=== PATIENT | male | born 1960 | race Caucasian/White ===

== ENCOUNTER 2018-10-04 12:01 | Emergency (ER) | payer MEDICAID, SELFPAY ==
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
--- NOTE | 2018-10-04 12:26 | ED.RN ---
1CM BY 1CM CIRCULAR WOUND ON RT OUTER FOREARM. 10CM BY 4CM LACERATION ON INNER FOREARM. 2.5CM BY 2CM CIRCULAR WOUND TO RT CHEST BELOW RT BREAST.
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
--- NOTE | 2018-10-04 14:11 | ED.RN ---
CONTROL TECHNICIAN Robbie BROWN RN ASSISTING WITH CODE.
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
--- OUTSIDE RECORDS SUMMARY | 2019-01-06 13:23 | XMS RPT_ITS ---
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 Source: [facility] 10:44 [facility] REPOSITORY TYPE CODE TESTS RESULT OUT OF REFERENCE UNITS RANGE LAB ANEU(LOINC) 2.25-8.10 10 3/mcL Neutrophil, 5.90 Absolute Performed By: #### BMP, MG, GFR, CBC, ADIFF, ANEU, TSH #### [address] [address] TSH Collected: 08/30/2018 Status: F Source: [facility] 10:44 PM [facility], [place] REPOSITORY TYPE CODE TESTS RESULT OUT OF RANGE REFERENCE UNITS LAB TSH(LOINC) 0.360-3.740 mcIU/mL TSH 1.250 Result Comment: Please note as of 05/03/17 new pediatric reference intervals were added for this test. Performed By: #### BMP, MG, GFR, CBC, ADIFF, ANEU, TSH #### [place] [address] TROPI Collected: 08/30/2018 Status: F Source: [facility] 10:44 PM [facility] [place] REPOSITORY TYPE CODE TESTS RESULT OUT OF REFERENCE UNITS RANGE LAB TROPI(LOINC 0.000-0.040 ng/mL ) High Troponin I 0.069 Result Comment: Troponin I reference ranges (06/27/14): 0.00-0.040 ng/mL Negative and non-diagnostic. >0.040 ng/mL Consistent with cardiac damage, increased clinical risk and possibility of myocardial infarction. Serial measurements, a rise & fall in test results, clinical history, appropriate symptoms and/or ECG changes may help assess possibility of VA. *Other non-acute coronary syndrome conditions such as CHF, myocarditis, pulmonary emboli, sepsis and cardiac surgery could result in myocardial damage and increased troponin levels. Performed By: #### TROPI #### [place] [address] PRO Collected: 08/30/2018 Status: F Source: [facility] 3:02 PM [facility] [place] REPOSITORY TYPE CODE TESTS RESULT OUT OF REFERENCE UNITS RANGE LAB PT(LOINC) 9.3-14.6 seconds Protime 13.2 LAB INR(LOINC) 0.9-1.2 ratio PT High International 1.3 Ratio Result Comment: Standard Dose 2.0 - 3.0 High Dose 2.5 - 3.5 The recommended therapeutic range for oral anticoagulant therapy is: LOW RISK: Prophylaxis of venous thrombosis INR: 2.0 - 3.0 Treatment of pulmonary embolism 2.0 - 3.0 Prevention of systemic embolism 2.0 - 3.0 HIGH RISK: Mechanical prosthetic valves 2.5 - 3.5 Performed By: #### PRO, APTT #### [facility] [address] [place], [place] [address] APTT Collected: 08/30/2018 Status: F Source: [facility] 3:02 PM [facility] [place] REPOSITORY TYPE CODE TESTS RESULT OUT OF REFERENCE UNITS RANGE LAB PDOSE(LOIN C) Heparin dose None (APTT) LAB APTT0(LOIN 24.4-35.6 seconds C) APTT 28.6 Result Comment: For Heparin anticoagulation therapy, the recommended therapeutic range is: 47.7-87.7 seconds (1.5 - 2.5 the normal plasma mean). Patients on heparin therapy may have an extreme result. Performed By: #### PRO, APTT #### [facility] [address] [place], [place] [address] XR CHEST 1 VIEW Observed: 08/30/2018 Status: F Source: [facility] 2:31 PM [facility] [place] REPOSITORY ORIGINAL XR CHEST 1 VIEW PORTABLE Upright AP TIME: 2:24 PM the CLINICAL STATEMENT: chest pain COMPARISON: Chest radiograph 08/17/2015 FINDINGS: The cardiac silhouette is stable and within normal limits. There is no consolidation, vascular congestion, pleural effusion, or pneumothorax. There is no acute osseous abnormality. Bibasilar symmetric nodular densities are probably nipple shadows. There are small calcified granulomas in the RIGHT lower lung. Faint 6 mm noncalcified nodular density projects in the LEFT midlung late rally over the inferior scapula. IMPRESSION: No acute finding. Suspect a small LEFT midlung nodular density. Suggest PA and lateral views for clarification. If this is confirmed, CT may be appropriate. I have personally reviewed the images of this examination and agree with the resident's findings and interpretation. Interpreted By: Amol Carrion MD Preliminary Report By: Jaime Fonseca MD Electronically Signed By: Amol Carrion MD Dictated Date: 08/30/2018 2:36:29 PM Prelim Date: 08/30/2018 2:37:58 PM Sign Date: 08/30/2018 2:46:30 PM CBC Collected: 08/30/2018 Status: F Source: [facility] 2:04 PM [facility] [place] REPOSITORY TYPE CODE TESTS RESULT OUT OF REFERENCE UNITS RANGE LAB WBC(LOINC) 4.60-10.80 10 3/mcL High WBC 11.20 LAB RBCCT(LOINC 4.04-6.13 10 6/mcL ) RBC 5.69 LAB HGB(LOINC) 14.0-18.0 G/dL Hgb 17.0 LAB HCT(LOINC) 42.0-52.0 % Hct 51.9 LAB MCV(LOINC) 80.0-94.0 fL MCV 91.2 LAB MCH(LOINC) 27.0-31.2 pg MCH 29.8 LAB MCHC(LOINC) 31.8-35.4 G/dL MCHC 32.7 LAB RDW(LOINC) 11.5-14.5 % RDW 14.4 LAB PLT(LOINC) 130-400 10 3/mcL Platelet 221 LAB MPV(LOINC) 7.4-10.4 fL MPV 8.6 Performed By: #### CBC, ADIFF, ANEU #### [address] [address] #### BMP, GFR, TROP, PBNP #### [place] [address] .AUTO DIFF Collected: 08/30/2018 Status: F Source: [facility] 2:04 PM [facility] REPOSITORY TYPE CODE TESTS RESULT OUT OF REFERENCE UNITS RANGE LAB MARCUS(LOINC) 37.0-80.0 % Neutrophil % 73.3 LAB LYM(LOINC) 10.0-50.0 % Lymphocyte % 15.4 LAB MON(LOINC) 1.7-13.0 % Monocyte % 9.7 LAB EO(LOINC) 0.0-7.0 % Eosinophil % 0.9 LAB BAS(LOINC) 0.0-2.5 % Basophil % 0.7 LAB ABLYM(LOIN 0.77-3.85 10 3/mcL C) Lymphocyte, 1.70 Absolute LAB YASIR(LOINC 0.15-1.00 10 3/mcL ) High Monocyte, 1.10 Absolute LAB AEOS(LOINC 0.00-0.40 10 3/mcL ) Eosinophil, 0.10 Absolute LAB ABAS(LOINC 0.00-0.19 10 3/mcL ) Basophil, 0.10 Absolute Performed By: #### CBC, ADIFF, ANEU #### [address] [address] #### BMP, GFR, TROP, PBNP #### [address] [address] .NEUABS Collected: 08/30/2018 Status: F Source: [facility] 2:04 [facility] REPOSITORY TYPE CODE TESTS RESULT OUT OF REFERENCE UNITS RANGE LAB ANEU(LOINC) 2.85-6.16 10 3/mcL High Neutrophil, 8.20 Absolute Performed By: #### CBC, ADIFF, ANEU #### [address] [address] #### BMP, GFR, TROP, PBNP #### [place] [address] BMP Collected: 08/30/2018 Status: F Source: [facility] [address] [place] [address] REPOSITORY TYPE CODE TESTS RESULT OUT OF REFERENCE UNITS RANGE LAB GLU(LOINC) 80-115 mg/dL Glucose High Level 171 LAB NA(LOINC) 136-145 mmol/L Sodium Level 140 LAB K(LOINC) 3.5-5.1 mmol/L Potassium Level 4.3 LAB CL(LOINC) 98-107 mmol/L Chloride 101 LAB CO2(LOINC) 23-31 mmol/L CO2 28 LAB EBAL(LOINC mEq/L ) Electrolyte Balance 11.0 LAB BUN(LOINC) 7-18 mg/dL BUN High 28 LAB CRE(LOINC) 0.70-1.30 mg/dL Creatinine High Lvl (s) 1.38 LAB BC(LOINC) 7-27 ratio BUN/Creatinine 20 Ratio LAB CA(LOINC) 8.4-10.2 mg/dL Calcium Lvl 9.5 Performed By: #### CBC, ADIFF, ANEU #### [address] [address] #### BMP, GFR, TROP, PBNP #### [place] [address] .GFR Collected: 08/30/2018 Status: F Source: [facility] [address] [place] [address] REPOSITORY TYPE CODE TESTS RESULT OUT OF REFERENCE UNITS RANGE LAB GFRAA(LOINC ml/min/1.73 ) sqm GFR 64 Italian Result Comment: GFR Population mean for , Non- Americans Ages 20-29 = 116 mL/min/1.73 sq.m. Ages 30-39 = 107 mL/min/1.73 sq.m. Ages 40-49 = 99 mL/min/1.73 sq.m. Ages 50-59 = 93 mL/min/1.73 sq.m. Ages 60-69 = 85 mL/min/1.73 sq.m. Ages 70+ = 75 mL/min/1.73 sq.m. Chronic Kidney Disease: Less than 60 mL/min/1.73 square meters End Stage Renal Disease: Less than 15 mL/min/1.73 square meters LAB GFRNO(LOINC) ml/min/1.73sqm GFR Non- 53 Result Comment: GFR Population mean for , Non- Americans Ages 20-29 = 116 mL/min/1.73 sq.m. Ages 30-39 = 107 mL/min/1.73 sq.m. Ages 40-49 = 99 mL/min/1.73 sq.m. Ages 50-59 = 93 mL/min/1.73 sq.m. Ages 60-69 = 85 mL/min/1.73 sq.m. Ages 70+ = 75 mL/min/1.73 sq.m. Chronic Kidney Disease: Less than 60 mL/min/1.73 square meters End Stage Renal Disease: Less than 15 mL/min/1.73 square meters Performed By: #### CBC, ADIFF, ANEU #### [facility] [address] [place], [place] [address] #### BMP, GFR, TROP, PBNP #### [place] [address] TROP Collected: 08/30/2018 Status: F Source: [facility] 2:04 PM [facility] REPOSITORY TYPE CODE TESTS RESULT OUT OF RANGE REFERENCE UNITS LAB TROP(LOINC 0.000-0.040 ng/mL ) Abnormal Alert Troponin 0.097 Result Comment: Troponin I reference range: 0.00-0.040 ng/mL Negative and non-diagnostic. >0.040 ng/mL Consistent with cardiac damage, increased clinical risk and possibility of myocardial infarction. Serial measurements, a rise & fall in test results, clinical history, appropriate symptoms and/or ECG changes may help assess possibility of VA. *Other non-acute coronary syndrome conditions such as CHF, myocarditis, pulmonary emboli, sepsis and cardiac surgery could result in myocardial damage and increased troponin levels. Performed By: #### CBC, ADIFF, ANEU #### [place] [address] #### BMP, GFR, TROP, PBNP #### [address] [address] PBNP Collected: 08/30/2018 Status: F Source: [facility] 2:04 [facility] REPOSITORY TYPE CODE TESTS RESULT OUT OF REFERENCE UNITS RANGE LAB PBNP(LOINC) 0-125 pg/mL High N-Terminal 373 proBNP Result Comment: NT-proBNP results of less than 300 pg/mL effectively rules out acute congestive heart failure with 99% negative predictive value. Performed By: #### CBC, ADIFF, ANEU #### [place] [address] #### BMP, GFR, TROP, PBNP #### [place] [address] Observed: 08/30/2018 Status: F Source: [facility] 2:04 [facility] REPOSITORY . MICRO - Microbiology PROCEDURE: Rapid Influenza A+B Screen w Cult if Ind [*1] SOURCE: Nasopharyngeal Swab BODY SITE: COLLECTED DATE/TIME: 08/30/2018 14:04 EST RECEIVED DATE/TIME: 08/30/2018 14:12 EST START DATE/TIME: 08/30/2018 14:12 EST FREE TEXT SOURCE: FINAL REPORTS Final Report [] Verified Date/Time/Personnel: 08/30/2018 14:39 EST Specimen is negative for the presence of influenza A antigen. . Specimen is negative for the presence of influenza B antigen. . Inadequate specimen collection, improper sample handling and/or low levels of viral shedding may yield a false-negative result. . The optimal specimen type for the Rapid Flu test is a nasopharyngeal wash/aspirate or nasopharyngeal swab. All negative rapid tests for Flu A and Flu B will be confirmed with a Respiratory Id Panel by PCR. . Assay method employs immunofluorescence technology. Performing Locations *1: This test was performed at: [address], [address] [place] [address] Performed By: #### RFLU #### [facility] [address] [place] [id number] RESPID Collected: 08/30/2018 Status: F Source: [facility] 1:54 PM [facility] REPOSITORY Order Comment: Order added by [id number] TYPE CODE TESTS RESULT OUT OF REFERENCE UNITS RANGE LAB RESADENO( Not Detected LOINC) Adenovirus Not Detected LAB COVHKU1(L Not Detected OINC) Coronavirus HKU1 Not Detected LAB COVNL63(L Not Detected OINC) Coronavirus NL63 Not Detected LAB [id number](L Not Detected OINC) Coronavirus 229E Not Detected LAB COVOC43(L Not Detected OINC) Coronavirus OC43 Not Detected LAB HMV(LOINC Not Detected ) Human Metapneumovirus Not Detected LAB INFA(LOIN Not Detected C) Influenza A Not Detected LAB INFAB(BRAULIO Not Detected NC) Influenza B Not Detected LAB PARAFLU1( Not Detected LOINC) Parainfluenza 1 Not Detected LAB PARAFLU2( Not Detected LOINC) Parainfluenza 2 Not Detected LAB PARAFLU3( Not Detected LOINC) Parainfluenza 3 Not Detected LAB PARAFLU4( Not Detected LOINC) Parainfluenza 4 Not Detected LAB RHINO(BRAULIO Not Detected NC) Rhinovirus/Enterovir us Not Detected LAB RESRSV(LO Not Detected INC) Respiratory Syncytial Virus Not Detected LAB RESMYCO(L Not Detected OINC) Mycoplasma pneumoniae Not Detected LAB RESCHLAM( Not Detected LOINC) Chlamydophila pneumoniae Not Detected LAB RESBORD(L Not Detected OINC) Bordetella Pertussis Not Detected LAB RESBPAR(L Not Detected OINC) Bordetella Parapertussis Not Detected Performed By: #### RESPID #### [address] [address] PROGRESS Observed: 08/23/2018 Status: COMPLETED Source: [facility] 1:[address] [facility] REPOSITORY HNO ID: [id number] Author: Leslie Mooney) [place] Service: (none) Author Type: Nurse Practitioner Type: Progress Notes Filed: 08/23/2018 1:47 PM Note Text: Subjective The history is provided by the patient. No school speech language pathologist was used. MALCOM Agustin is a 57 year old male who presents today for CC of sore throat and swollen gland for 2 weeks. Alleviating/Treatment: Took 5 prednisone from PCP and did not help Aggravating: Swallowing. Risk factors: Recently had teeth pulled and currently has dentures - 4 months ago, on symbicort BP 122/74 Pulse 74 Temp 36.1 ?C (96.9 ?F) (Tympanic) Resp 16 Wt 84.8 kg (187 lb) BMI 27.62 kg/m? ALLERGIES Allergen Reactions - Environmental [Othe* ACTIVE PROBLEM LIST Depressive Disorder, Not Elsewhere Classified Type II Or Unspecified Type Diabetes Mellitus Without Mention of Complication, Not Stated As Uncontrolled Other and Unspecified Hyperlipidemia Unspecified Essential Hypertension OVERWEIGHT BACK PAIN SKIN LESION Spinal Stenosis, Lumbar Region, Without Neurogenic Claudication Degeneration of Intervertebral Disc, Site Unspecified Personal History of Tobacco Use, Presenting Hazards to Health Swelling, Mass, Or Lump in Chest PARESTHESIAS BOTH ARMS Cervicalgia Unspecified Cardiovascular Disease Carpal Tunnel Syndrome Pain in Joint, Shoulder Region Anxiety State, Unspecified ERECTILE DYSFUNCTION Allergy, Unspecified Not Elsewhere Classified Alcohol Abuse Neuropathy (Hcc) Chronic Pain Benign Neoplasm of Colon History of Carpal Tunnel Repair Ulnar Neuropathy At Elbow Brachial Neuritis Or Radiculitis NOS Lumbar Radiculopathy Postlaminectomy Syndrome Right Hip Pain Cervical Radiculopathy Cervical Stenosis of Spinal Canal Family History Problem Relation Age of Onset - Hypertension Mother - Diabetes Mother - Hypertension Father - Lipids Unknown - other (ASCVD [Other]) Unknown Social History Marital status: Spouse name: Years of education: Number of children: Social History Main Topics Smoking status: Current Every Day Smoker Packs/day: 1.00 Years: 25.00 Types: Cigarettes Smokeless tobacco: Never Used Alcohol use: No Drug use: No PAST MEDICAL HISTORY Diagnosis Date - Alcohol abuse 03/02/2010 - ALLERGY, UNSPECIFIED 03/06/2009 - Anxiety state, unspecified - Chronic headaches - CVA (cerebral infarction) 10/20/11 right sided hemiparesis - Depressive disorder, not elsewhere classified - Diabetes mellitus type II - Diabetic peripheral neuropathy (HCC) - Hypertension - Hypogonadism, male 2011 - Obesity, unspecified - Other and unspecified hyperlipidemia - Unspecified essential hypertension - Unspecified sleep apnea Sleep apnea Review of Systems Constitutional: Negative. Negative for chills, fever and malaise/fatigue. HENT: Positive for sore throat. Negative for congestion, ear pain and sinus pain. Swollen glands Respiratory: Negative for cough, sputum production, shortness of breath and wheezing. Cardiovascular: Negative for chest pain. Musculoskeletal: Negative for myalgias. Skin: Negative for rash. Neurological: Negative for headaches. Objective Physical Exam Constitutional: He is well-developed, well-nourished, and in no distress. HENT: Head: Normocephalic and atraumatic. Right Ear: Tympanic membrane and ear canal normal. There is drainage (cerumen). Tympanic membrane is not injected, not erythematous, not retracted and not bulging. No middle ear effusion. Left Ear: Tympanic membrane and ear canal normal. There is drainage (cerumen). Tympanic membrane is not injected, not erythematous, not retracted and not bulging. No middle ear effusion. Nose: Mucosal edema and rhinorrhea present. Right sinus exhibits no maxillary sinus tenderness and no frontal sinus tenderness. Left sinus exhibits no maxillary sinus tenderness and no frontal sinus tenderness. Mouth/Throat: Uvula is midline and mucous membranes are normal. Posterior oropharyngeal erythema (white placque on tongue and roof of mouth) present. No oropharyngeal exudate, posterior oropharyngeal edema or tonsillar abscesses. Lavage done of both ears by Corby Torres MA, patient tolerated well, able to see TM - see exam Eyes: Pupils are equal, round, and reactive to light. Conjunctivae and EOM are normal. Neck: Normal range of motion. Cardiovascular: Normal rate, regular rhythm and normal heart sounds. Pulmonary/Chest: Effort normal and breath sounds normal. No respiratory distress. He has no decreased breath sounds. He has no wheezes. He has no rhonchi. He has no rales. Lymphadenopathy: Head (right side): No submental, no submandibular, no tonsillar, no preauricular and no posterior auricular adenopathy present. Head (left side): No submental, no submandibular, no tonsillar, no preauricular and no posterior auricular adenopathy present. He has cervical adenopathy. Right cervical: No superficial cervical and no posterior cervical adenopathy present. Left cervical: Superficial cervical adenopathy present. No posterior cervical adenopathy present. Right: No supraclavicular adenopathy present. Left: No supraclavicular adenopathy present. Skin: Skin is warm and dry. Psychiatric: Affect normal. Nursing note and vitals reviewed. ASSESSMENT/PLAN: 1. Thrush - ICD9: 112.0, ICD10: B37.0 (primary diagnosis) Use medication as directed and follow up with PCP for recheck Make sure to rinse mouth after symbicort use - CLOTRIMAZOLE 10 MG ERIKA 2. Sore throat - ICD9: 462, ICD10: J02.9 - suspect thrush - Rapid Strep negative in the office today - Antifungal as written - Discussed supportive care treatment with fluids, rest and tylenol or ibuprofen as needed - The patient may also use warm salt water gargles, throat lozenges and/or OTC throat spray as needed. - The patient should follow up in two weeks with pcp to make sure resolved - Call back if drooling, increased temperature, symptoms of dehydration and/or still sick in one week - RAPID STREP TEST B/O 3. Bilateral impacted cerumen - ICD9: 380.4, ICD10: H61.23 Use may use OTC Debrox or Cerumenex once a month for maintenance. Avoid inserting Q-tips into your ears. Follow up with your PCP as needed. Diagnosis and treatment plan were discussed and questions were answered to the patient's satisfaction. Pt acknowledged understanding of concepts and follow up plan. Specific signs and symptoms that would indicate the need for higher level of care were discussed in detail warranting prompt ER evaluation. Leslie Rossi APRN.JESICA CNOV Observed: 08/23/2018 Status: COMPLETED Source: [facility] 1:15 PM [facility] REPOSITORY Office Visit ([facility]) ABBY AGUSTIN ([id number]) 1960 M Date Time Provider Department 08/23/18 1:15 PM LESLIE ROSSI (JESICA) [facility] During your visit today, we recorded the following information about you: Temperature Pulse Respiration Blood pressure 96.9 degrees 74/minute 16/minute 122/74 Weight 84.8 kg Leslie Rossi APRN.JESICA 08/23/2018 1:47 PM Signed Subjective The history is provided by the patient. No school speech language pathologist was used. MALCOM Agustin is a 57 year old male who presents today for CC of sore throat and swollen gland for 2 weeks. Alleviating/Treatment: Took 5 prednisone from PCP and did not help Aggravating: Swallowing. Risk factors: Recently had teeth pulled and currently has dentures - 4 months ago, on symbicort BP 122/74 Pulse 74 Temp 36.1 ?C (96.9 ?F) (Tympanic) Resp 16 Wt 84.8 kg (187 lb) BMI 27.62 kg/m? ALLERGIES Allergen Reactions - Environmental [Othe* ACTIVE PROBLEM LIST Depressive Disorder, Not Elsewhere Classified Type II Or Unspecified Type Diabetes Mellitus Without Mention of Complication, Not Stated As Uncontrolled Other and Unspecified Hyperlipidemia Unspecified Essential Hypertension OVERWEIGHT BACK PAIN SKIN LESION Spinal Stenosis, Lumbar Region, Without Neurogenic Claudication Degeneration of Intervertebral Disc, Site Unspecified Personal History of Tobacco Use, Presenting Hazards to Health Swelling, Mass, Or Lump in Chest PARESTHESIAS BOTH ARMS Cervicalgia Unspecified Cardiovascular Disease Carpal Tunnel Syndrome Pain in Joint, Shoulder Region Anxiety State, Unspecified ERECTILE DYSFUNCTION Allergy, Unspecified Not Elsewhere Classified Alcohol Abuse Neuropathy (Hcc) Chronic Pain Benign Neoplasm of Colon History of Carpal Tunnel Repair Ulnar Neuropathy At Elbow Brachial Neuritis Or Radiculitis NOS Lumbar Radiculopathy Postlaminectomy Syndrome Right Hip Pain Cervical Radiculopathy Cervical Stenosis of Spinal Canal Family History Problem Relation Age of Onset - Hypertension Mother - Diabetes Mother - Hypertension Father - Lipids Unknown - other (ASCVD [Other]) Unknown Social History Marital status: Spouse name: Years of education: Number of children: Social History Main Topics Smoking status: Current Every Day Smoker Packs/day: 1.00 Years: 25.00 Types: Cigarettes Smokeless tobacco: Never Used Alcohol use: No Drug use: No PAST MEDICAL HISTORY Diagnosis Date - Alcohol abuse 03/02/2010 - ALLERGY, UNSPECIFIED 03/06/2009 - Anxiety state, unspecified - Chronic headaches - CVA (cerebral infarction) 10/20/11 right sided hemiparesis - Depressive disorder, not elsewhere classified - Diabetes mellitus type II - Diabetic peripheral neuropathy (HCC) - Hypertension - Hypogonadism, male 2011 - Obesity, unspecified - Other and unspecified hyperlipidemia - Unspecified essential hypertension - Unspecified sleep apnea Sleep apnea Review of Systems Constitutional: Negative. Negative for chills, fever and malaise/fatigue. HENT: Positive for sore throat. Negative for congestion, ear pain and sinus pain. Swollen glands Respiratory: Negative for cough, sputum production, shortness of breath and wheezing. Cardiovascular: Negative for chest pain. Musculoskeletal: Negative for myalgias. Skin: Negative for rash. Neurological: Negative for headaches. Objective Physical Exam Constitutional: He is well-developed, well-nourished, and in no distress. HENT: Head: Normocephalic and atraumatic. Right Ear: Tympanic membrane and ear canal normal. There is drainage (cerumen). Tympanic membrane is not injected, not erythematous, not retracted and not bulging. No middle ear effusion. Left Ear: Tympanic membrane and ear canal normal. There is drainage (cerumen). Tympanic membrane is not injected, not erythematous, not retracted and not bulging. No middle ear effusion. Nose: Mucosal edema and rhinorrhea present. Right sinus exhibits no maxillary sinus tenderness and no frontal sinus tenderness. Left sinus exhibits no maxillary sinus tenderness and no frontal sinus tenderness. Mouth/Throat: Uvula is midline and mucous membranes are normal. Posterior oropharyngeal erythema (white placque on tongue and roof of mouth) present. No oropharyngeal exudate, posterior oropharyngeal edema or tonsillar abscesses. Lavage done of both ears by Corby Torres MA, patient tolerated well, able to see TM - see exam Eyes: Pupils are equal, round, and reactive to light. Conjunctivae and EOM are normal. Neck: Normal range of motion. Cardiovascular: Normal rate, regular rhythm and normal heart sounds. Pulmonary/Chest: Effort normal and breath sounds normal. No respiratory distress. He has no decreased breath sounds. He has no wheezes. He has no rhonchi. He has no rales. Lymphadenopathy: Head (right side): No submental, no submandibular, no tonsillar, no preauricular and no posterior auricular adenopathy present. Head (left side): No submental, no submandibular, no tonsillar, no preauricular and no posterior auricular adenopathy present. He has cervical adenopathy. Right cervical: No superficial cervical and no posterior cervical adenopathy present. Left cervical: Superficial cervical adenopathy present. No posterior cervical adenopathy present. Right: No supraclavicular adenopathy present. Left: No supraclavicular adenopathy present. Skin: Skin is warm and dry. Psychiatric: Affect normal. Nursing note and vitals reviewed. ASSESSMENT/PLAN: 1. Thrush - ICD9: 112.0, ICD10: B37.0 (primary diagnosis) Use medication as directed and follow up with PCP for recheck Make sure to rinse mouth after symbicort use - CLOTRIMAZOLE 10 MG ERIKA 2. Sore throat - ICD9: 462, ICD10: J02.9 - suspect thrush - Rapid Strep negative in the office today - Antifungal as written - Discussed supportive care treatment with fluids, rest and tylenol or ibuprofen as needed - The patient may also use warm salt water gargles, throat lozenges and/or OTC throat spray as needed. - The patient should follow up in two weeks with pcp to make sure resolved - Call back if drooling, increased temperature, symptoms of dehydration and/or still sick in one week - RAPID STREP TEST B/O 3. Bilateral impacted cerumen - ICD9: 380.4, ICD10: H61.23 Use may use OTC Debrox or Cerumenex once a month for maintenance. Avoid inserting Q-tips into your ears. Follow up with your PCP as needed. Diagnosis and treatment plan were discussed and questions were answered to the patient's satisfaction. Pt acknowledged understanding of concepts and follow up plan. Specific signs and symptoms that would indicate the need for higher level of care were discussed in detail warranting prompt ER evaluation. Leslie Rossi APRN.JESICA Rossi APRN.CNP 08/23/2018 1:39 PM Signed ASSESSMENT/PLAN: 1. Thrush - ICD9: 112.0, ICD10: B37.0 (primary diagnosis) Thrush Thrush is an infection of the mouth caused by the Karla fungus, also known as yeast. Karla infection is not limited to the mouth; it can occur in other parts of the body as well, causing diaper rash in infants or vaginal yeast infections in women. What causes thrush? Small amounts of the Karla fungus are present in the mouth, digestive tract, and skin of most healthy people and are normally kept in check by other bacteria and microorganisms in the body. However, certain illnesses, stress, or medications can disturb the delicate balance, causing the fungus Karla to grow out of control and causing infection. Thrush can affect anyone, though it occurs most often in babies and toddlers, older adults, and people with weakened immune systems. Examples of medications that upset the balance of microorganisms in the mouth include corticosteroids, antibiotics, and control pills. Illnesses or medical situations that make Karla infection more likely to develop include uncontrolled diabetes, HIV infection, cancer, dry mouth, or (caused by the hormonal changes that occur with ). People who smoke or wear dentures that don?t fit properly also are at increased risk for thrush. In addition, babies can pass the infection to their mothers during breast-feeding. While healthy children and adults can be effectively treated, the symptoms may be more severe and difficult to manage in those with weakened immune systems. What are the symptoms of thrush? Thrush usually develops suddenly, but it may become chronic, persisting over a long period of time. A common sign of thrush is the presence of creamy white, slightly raised lesions in your mouth -- usually on your tongue or inner cheeks -- but also sometimes on the roof of your mouth, gums, tonsils, or back of your throat. The lesions, which may have a cottage cheese appearance, can be painful and may bleed slightly when you scrape them or brush your teeth. In severe cases, the lesions may spread into your esophagus, or swallowing tube, causing the following symptoms: Pain or difficulty swallowing A feeling that food gets stuck in the throat or mid-chest area Fever, if the infection spreads beyond the esophagus Thrush can spread to other parts of the body, including the lungs, liver, and skin. This happens more often in people with cancer, HIV, or other conditions that weaken the immune system. How is thrush diagnosed? Your dentist can make the diagnosis by examining your mouth. He or she looks for the distinctive white lesions on your mouth, tongue, or checks. Lightly brushing the lesions away reveals a reddened, tender area that may bleed slightly. A microscopic examination of tissue from a lesion can confirm the diagnosis. Thrush that may extend into your esophagus may require other tests to make the diagnosis. Such tests might include taking a throat culture (swabbing the back of your throat with sterile cotton and studying the microorganisms under a microscope), performing an endoscopy of your esophagus, stomach, and small intestine (examining the lining of these body areas with a lighted camera mounted on the tip of a tube passed through these areas), or taking x-rays of your esophagus. How is thrush treated? Antifungal medications, which are generally taken for 10 to 14 days, are often prescribed to treat thrush. These medicines are available in tablets, lozenges, or liquids that are usually swished around in your mouth before being swallowed. Your dentist will have a specific treatment approach designed for you based on your age and the cause of the infection. Because the presence of Karla infection can be a symptom of other medical problems, your dentist may suggest you seek care from a medical doctor as well so that any underlying health problems you have can be treated. How can thrush be prevented? The following practices can help minimize your chance of developing thrush: Follow good oral hygiene practices: Ronda your teeth at least twice a day and floss at least once a day. Avoid mouthwashes or sprays: These products can destroy the normal balance of microorganisms in your mouth. See your dentist regularly: This is especially important if you have diabetes or wear dentures. Limit the amount of sugar and yeast-containing foods you eat: Foods such as bread, beer, and wine encourage Karla growth. If you smoke, quit: Ask your doctor or dentist about ways to help you kick the habit. References: Oral Yeast Infections (Thrush or Candidiasis), [employer]. www.aaom.com Oral Candidiasis. Centers for Disease Control and Prevention. www.cdc.gov - CLOTRIMAZOLE 10 MG ERIKA 2. Sore throat - ICD9: 462, ICD10: J02.9 - suspect thrush - Rapid Strep negative in the office today - Antifungal as written - Discussed supportive care treatment with fluids, rest and tylenol or ibuprofen as needed - The patient may also use warm salt water gargles, throat lozenges and/or OTC throat spray as needed. - The patient should follow up in two weeks with pcp to make sure resolved - Call back if drooling, increased temperature, symptoms of dehydration and/or still sick in one week - RAPID STREP TEST B/O 3. Bilateral impacted cerumen - ICD9: 380.4, ICD10: H61.23 Use may use OTC Debrox or Cerumenex once a month for maintenance. Avoid inserting Q-tips into your ears. Follow up with your PCP as needed. Referring Provider: SELF [[id number]] Allergies As of Date: 08/23/2018 Noted Allergy Reaction Environmental [Other] 08/16/2005 Date Reviewed: 08/23/2018 [facility] [place] - Fully Assessed Reason for Visit: Swollen Glands [458] Cmt: left side and pain in neck and jaw x 2 weeks Primary Visit Diagnosis:Thrush [B37.0] Other Visit Diagnoses:Sore throat [J02.9] Bilateral impacted cerumen [H61.23] Order(s):RAPID STREP TEST B/O [[id number]] Order #: [id number] clotrimazole (MYCELEX) 10 mg trocheUse 1 Erika as instructed five times daily for 14 days.Disp: 70 tabletRfl: 0 Prescriptions as of 08/23/2018 Sig: CETIRIZINE 10 MG CAPSULE Take by mouth. DULOXETINE 60 MG CAPSULE,GIGI* Take 60 mg by mouth once richie* DICLOFENAC 1 % TOPICAL GEL Apply to affected area four * LINAGLIPTIN 5 MG TABLET Take by mouth. BUDESONIDE-FORMOTEROL HFA 160* Inhale 2 Puffs as instructed * ACLIDINIUM BROMIDE 400 MCG/AC* Inhale as instructed. GABAPENTIN 800 MG TABLET Take 800 mg by mouth three ti* ARIPIPRAZOLE 10 MG DISINTEGRA* Take 10 mg by mouth once richie* ALBUTEROL 90 MCG/ACTUATION AE* Inhale 2 Puffs as instructed * ATORVASTATIN 80 MG TABLET Take 1 tablet by mouth daily * CYCLOBENZAPRINE 10 MG TABLET 20 mg at bedtime METFORMIN 1,000 MG TABLET Take 1 tablet by mouth twice * ATENOLOL 100 MG TABLET Take 1 tablet by mouth once d* Patient taking differently: Take 50 mg by mouth once richie* LISINOPRIL 40 MG TABLET Take 1 tablet by mouth twice * BUSPIRONE 15 MG TABLET once daily. MELOXICAM 15 MG TABLET CLOPIDOGREL 75 MG TABLET Take 1 tablet by mouth once d* RANITIDINE 150 MG TABLET Take 1 tablet by mouth twice * HYDROCHLOROTHIAZIDE 50 MG TAB* Take 1 tablet by mouth once d* * MISCELLANEOUS MEDICAL SUPPLY * LARGE CUFF NEEDED. Check bloo* * NITROGLYCERIN 0.4 MG SUBLINGU* Dissolve 1 tablet under the t* * FLUTICASONE 50 MCG/ACTUATION * Use 2 Sprays in each nostril * * BLOOD SUGAR DIAGNOSTIC STRIPS TEST BLOOD SUGARS TWICE DAILY * LANCETS TEST BLOOD SUGARS TWICE DAILY CLOTRIMAZOLE 10 MG ERIKA Use 1 Erika as instructed fi* Problem List As Of Date 08/23/2018 Noted Resolved DEPRESSIVE DISORDER NEC [F32.9] DIABETES MELLITUS TYPE II-UNCOMPL [E11.9] More... HYPERLIPIDEMIA NEC/NOS [E78.5] More... Unspecified essential hypertension [I10] More... OVERWEIGHT [E66.9] BACK PAIN [M54.5] INVALID FOR* SKIN LESION [L98.9] INVALID FOR* SPINAL STENOSIS-LUMBAR [M48.061] INVALID FOR* More... DISC DEGENERATION NOS [LID5604] INVALID FOR* PERS HX TOBACCO USE [Z87.891] INVALID FOR* CHEST SWELLING/MASS/LUMP [R22.2] INVALID FOR* PARESTHESIAS BOTH ARMS [R20.9] INVALID FOR* CERVICALGIA [M54.2] INVALID FOR* ASCVD [I25.10] INVALID FOR* CARPAL TUNNEL SYNDROME [G56.00] INVALID FOR* JOINT PAIN-SHLDER [M25.519] INVALID FOR* ANXIETY STATE NOS [F41.1] INVALID FOR* ERECTILE DYSFUNCTION [F52.9] INVALID FOR* ALLERGY, UNSPECIFIED [T78.40XA] INVALID FOR* Alcohol Abuse [F10.10] INVALID FOR* Neuropathy [G62.9] INVALID FOR* Chronic Pain [G89.29] INVALID FOR* Benign neoplasm of colon [D12.6] INVALID FOR* History of carpal tunnel repair [Z98.890] INVALID FOR* 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 Thrush - ICD9: 112.0, ICD10: B37.0 (primary diagnosis) Thrush Thrush is an infection of the mouth caused by the Karla fungus, also known as yeast. Karla infection is not limited to the mouth; it can occur in other parts of the body as well, causing diaper rash in infants or vaginal yeast infections in women. What causes thrush? Small amounts of the Karla fungus are present in the mouth, digestive tract, and skin of most healthy people and are normally kept in check by other bacteria and microorganisms in the body. However, certain illnesses, stress, or medications can disturb the delicate balance, causing the fungus Karla to grow out of control and causing infection. Thrush can affect anyone, though it occurs most often in babies and toddlers, older adults, and people with weakened immune systems. Examples of medications that upset the balance of microorganisms in the mouth include corticosteroids, antibiotics, and control pills. Illnesses or medical situations that make Karla infection more likely to develop include uncontrolled diabetes, HIV infection, cancer, dry mouth, or (caused by the hormonal changes that occur with ). People who smoke or wear dentures that don?t fit properly also are at increased risk for thrush. In addition, babies can pass the infection to their mothers during breast-feeding. While healthy children and adults can be effectively treated, the symptoms may be more severe and difficult to manage in those with weakened immune systems. What are the symptoms of thrush? Thrush usually develops suddenly, but it may become chronic, persisting over a long period of time. A common sign of thrush is the presence of creamy white, slightly raised lesions in your mouth -- usually on your tongue or inner cheeks -- but also sometimes on the roof of your mouth, gums, tonsils, or back of your throat. The lesions, which may have a cottage cheese appearance, can be painful and may bleed slightly when you scrape them or brush your teeth. In severe cases, the lesions may spread into your esophagus, or swallowing tube, causing the following symptoms: Pain or difficulty swallowing A feeling that food gets stuck in the throat or mid-chest area Fever, if the infection spreads beyond the esophagus Thrush can spread to other parts of the body, including the lungs, liver, and skin. This happens more often in people with cancer, HIV, or other conditions that weaken the immune system. How is thrush diagnosed? Your dentist can make the diagnosis by examining your mouth. He or she looks for the distinctive white lesions on your mouth, tongue, or checks. Lightly brushing the lesions away reveals a reddened, tender area that may bleed slightly. A microscopic examination of tissue from a lesion can confirm the diagnosis. Thrush that may extend into your esophagus may require other tests to make the diagnosis. Such tests might include taking a throat culture (swabbing the back of your throat with sterile cotton and studying the microorganisms under a microscope), performing an endoscopy of your esophagus, stomach, and small intestine (examining the lining of these body areas with a lighted camera mounted on the tip of a tube passed through these areas), or taking x-rays of your esophagus. How is thrush treated? Antifungal medications, which are generally taken for 10 to 14 days, are often prescribed to treat thrush. These medicines are available in tablets, lozenges, or liquids that are usually swished around in your mouth before being swallowed. Your dentist will have a specific treatment approach designed for you based on your age and the cause of the infection. Because the presence of Karla infection can be a symptom of other medical problems, your dentist may suggest you seek care from a medical doctor as well so that any underlying health problems you have can be treated. How can thrush be prevented? The following practices can help minimize your chance of developing thrush: Follow good oral hygiene practices: Ronda your teeth at least twice a day and floss at least once a day. Avoid mouthwashes or sprays: These products can destroy the normal balance of microorganisms in your mouth. See your dentist regularly: This is especially important if you have diabetes or wear dentures. Limit the amount of sugar and yeast-containing foods you eat: Foods such as bread, beer, and wine encourage Karla growth. If you smoke, quit: Ask your doctor or dentist about ways to help you kick the habit. References: Oral Yeast Infections (Thrush or Candidiasis), [employer]. www.aaom.com Oral Candidiasis. Centers for Disease Control and Prevention. www.cdc.gov - CLOTRIMAZOLE 10 MG ERIKA 2. Sore throat - ICD9: 462, ICD10: J02.9 - suspect thrush - Rapid Strep negative in the office today - Antifungal as written - Discussed supportive care treatment with fluids, rest and tylenol or ibuprofen as needed - The patient may also use warm salt water gargles, throat lozenges and/or OTC throat spray as needed. - The patient should follow up in two weeks with pcp to make sure resolved - Call back if drooling, increased temperature, symptoms of dehydration and/or still sick in one week - RAPID STREP TEST B/O 3. Bilateral impacted cerumen - ICD9: 380.4, ICD10: H61.23 Use may use OTC Debrox or Cerumenex once a month for maintenance. Avoid inserting Q-tips into your ears. Follow up with your PCP as needed. Prescriptions ordered this encounter Disp Refills Start End CLOTRIMAZOLE 10 MG ERIKA 70 t* 0 08/23/2018 09/06/2018 Route: MUCOUS MEM Sig: Use 1 Erika as instructed five times daily for 14 days. Encounter Status:Closed by LESLIE ROSSI CNP on 08/23/18 TESTO Collected: 07/23/2018 Status: F Source: [facility] 11:20 AM [facility] [place] REPOSITORY TYPE CODE TESTS RESULT OUT OF REFERENCE UNITS RANGE LAB TESTO(LOIN 241.0-827.0 ng/dL C) Testosterone Lvl 462.0 Performed By: #### TESTO #### [place] [address] UA Collected: 03/27/2018 Status: F Source: [facility] 11:56 AM [facility] [place] REPOSITORY TYPE CODE TESTS RESULT OUT OF REFERENCE UNITS RANGE LAB SPCUA(LOIN C) UA Specimen Type Clean Catch LAB CLRUA(LOIN C) UA Color YELLOW LAB APPUA(LOIN C) UA Appear CLEAR LAB SGUA(LOINC ) UA Spec Grav 1.020 LAB GLUA(LOINC mg/dL ) UA Glucose NEGATIVE LAB BILUA(LOIN C) UA Bili NEGATIVE LAB KETUA(LOIN mg/dL C) UA Ketones NEGATIVE LAB BLDUA(LOIN C) UA Blood TRACE-LYSED LAB PHUA(LOINC ) UA pH 6.0 LAB PROUA(LOIN mg/dL C) UA Protein NEGATIVE LAB UROUA(LOIN E.U./dL C) UA Urobilinogen 0.2 LAB NITUA(LOIN C) UA Nitrite NEGATIVE LAB LEUUA(LOIN C) UA Leuk Est NEGATIVE Performed By: #### UA, UAMICAO #### [facility] [address] [place], [place] [address] .URINALYSIS MICROSCOPIC Collected: 03/27/2018 Status: F Source: [facility] 11:56 AM [facility] REPOSITORY TYPE CODE TESTS RESULT OUT OF REFERENCE UNITS RANGE LAB WBCUA(LOIN None Seen /hpf C) UA WBC None Seen LAB RBCUA(LOIN None Seen /hpf C) UA RBC None Seen LAB EPIUA(LOIN None Seen /hpf C) UA Squam Epithelial None Seen Performed By: #### UA, UAMICAO #### [facility] [address] [place], [place] [address] Observed: 01/23/2018 Status: F Source: [facility] 5:26 PM [facility] [place] REPOSITORY . MICRO - Microbiology PROCEDURE: Urine Culture [*1] SOURCE: Urine, Clean Catch BODY SITE: COLLECTED DATE/TIME: 01/23/2018 17:26 EDT RECEIVED DATE/TIME: 01/24/2018 18:16 EDT START DATE/TIME: 01/24/2018 18:16 EDT FREE TEXT SOURCE: FINAL REPORTS Final Report [] Verified Date/Time/Personnel: 01/26/2018 07:05 EDT No growth at 48 hours. PRELIMINARY REPORTS Preliminary Report [] Verified Date/Time/Personnel: 01/25/2018 07:59 EDT No growth to date Performing Locations *1: This test was performed at: [facility], [address] [place] [address], [facility] , [facility] Performed By: #### CUR #### [address] [address] LIPID Collected: 01/23/2018 Status: F Source: [facility] 9:00 AM [facility] [place] REPOSITORY TYPE CODE TESTS RESULT OUT OF REFERENCE UNITS RANGE LAB CHOL(LOINC 131-200 mg/dL ) Cholesterol High 212 Result Comment: Cholesterol Reference Interval: Less than 200 Desirable 200-239 Borderline high risk 240 and above High risk LAB TRIG(LOINC) 40-150 mg/dL Triglycerides 83 Result Comment: Triglyceride Reference Interval: Less than 150 Normal 150-199 Borderline high risk 200-499 High risk 500 or higher Very high risk LAB HD(LOINC) 35-90 mg/dL HDL Cholesterol 46 Result Comment: HDL Reference Interval: Less than 40 Low - high risk 60 or above Optimal/lowers risk LAB LDL(LOINC) 0-130 mg/dL LDL High Cholesterol 149 Result Comment: LDL is a calculated result and requires a 12-hr fast. LDL Reference Interval: Less than 100 Optimal 100-129 Near or above optimal 130-159 Borderline high risk 160-189 High risk 190 and above Very high risk Performed By: #### LIPID, CMP, GFR #### [place] [id number] [place], [place] [address] CMP Collected: 01/23/2018 Status: F Source: [email or web address] 9:00 AM [facility] REPOSITORY TYPE CODE TESTS RESULT OUT OF REFERENCE UNITS RANGE LAB 1547-9 70-105 mg/dL GLUCOSE High 128 LAB NA(LOINC) 136-146 mEq/L Sodium Level 140 LAB K(LOINC) 3.5-5.1 mEq/L Potassium Level 4.9 LAB CL(LOINC) 98-107 mEq/L Chloride 104 LAB CO2(LOINC) 22-29 mEq/L CO2 27 LAB EBAL(LOINC mEq/L ) Electrolyte Balance 9.0 LAB BUN(LOINC) 7.0-18.0 mg/dL BUN High 20.8 LAB CRE(LOINC) 0.6-1.2 mg/dL Creatinine Lvl (s) 1.2 LAB BC(LOINC) 7-27 ratio BUN/Creatinine 17 Ratio LAB CA(LOINC) 8.4-10.2 mg/dL Calcium Lvl 10.1 LAB PROT(LOINC 6.0-8.3 G/dL ) Total Protein 7.0 LAB ALB(LOINC) 3.5-5.0 G/dL Albumin Level 4.6 LAB GLB(LOINC) G/dL Globulin 2.4 LAB AG(LOINC) 1.1-2.5 ratio A/G Ratio 1.9 LAB BILT(LOINC 0.2-1.0 mg/dL ) Bili Total 0.5 LAB AP(LOINC) 40-135 IU/L Alk Phos 98 LAB AST(LOINC) 10-40 IU/L AST/SGOT 16 LAB ALT(LOINC) 10-35 IU/L ALT/SGPT 22 Performed By: #### LIPID, CMP, GFR #### [place] [id number] [place], [place] [address] .GFR Collected: 01/23/2018 Status: F Source: [facility] [place] 9:00 AM [facility] REPOSITORY TYPE CODE TESTS RESULT OUT OF REFERENCE UNITS RANGE LAB GFRAA(LOINC ml/min/1.73 ) sqm GFR 73 Italian Result Comment: GFR Population mean for , Non- Americans Ages 20-29 = 116 mL/min/1.73 sq.m. Ages 30-39 = 107 mL/min/1.73 sq.m. Ages 40-49 = 99 mL/min/1.73 sq.m. Ages 50-59 = 93 mL/min/1.73 sq.m. Ages 60-69 = 85 mL/min/1.73 sq.m. Ages 70+ = 75 mL/min/1.73 sq.m. Chronic Kidney Disease: Less than 60 mL/min/1.73 square meters End Stage Renal Disease: Less than 15 mL/min/1.73 square meters LAB GFRNO(LOINC) ml/min/1.73sqm GFR Non- 60 Result Comment: GFR Population mean for , Non- Americans Ages 20-29 = 116 mL/min/1.73 sq.m. Ages 30-39 = 107 mL/min/1.73 sq.m. Ages 40-49 = 99 mL/min/1.73 sq.m. Ages 50-59 = 93 mL/min/1.73 sq.m. Ages 60-69 = 85 mL/min/1.73 sq.m. Ages 70+ = 75 mL/min/1.73 sq.m. Chronic Kidney Disease: Less than 60 mL/min/1.73 square meters End Stage Renal Disease: Less than 15 mL/min/1.73 square meters Performed By: #### LIPID, CMP, GFR #### [place] [id number] [place], [place] [address] ALLERGIES ALLERGIES DATE TYPE / CODE NAME / CODE REACTION SEVERITY SOURCE 08/16/2005 Miscellaneous OTHER [facility] Allergy/[id number]([facility] NOMED CT) Repository ENCOUNTERS ENCOUNTERS ADMIT/DISCHARGE ACCOUNT NUMBER ADMITTING ENCOUNTER LOCATION SOURCE CLASS 10/04/2018/10/04/20 [id number] Emergency [place] 18 [facility] ding:ED Repository 08/30/2018/09/01/20 [id number] KOMET[facility]I Inpatient ABuilding:GILBERT Alexander MD., Encounter URoom: Fermín BAKER 0313Bed: [facility] Repository 08/30/2018/08/30/20 [id number] Emergency BBuilding:ER [place] [facility] Repository 08/23/2018/08/25/20 [id number] Ambulatory [address] Repository 07/23/2018/07/23/20 [id number] Ambulatory [address] ding:OLAB [facility] Repository 03/27/2018/03/31/20 [id number] Ambulatory [address] ding:DROP [facility] Repository 01/23/2018/01/28/20 [id number] Ambulatory [address] ding:DROP [facility] Repository PAYERS PAYERS ENCOUNTER GUARANTOR PAYER SUBSCRIBER SOURCE 10/04/2018 ABBY Simpson Primary ABBY Prado [id number] Insurance:CARESOURCEP GEISERDOB: [facility] [place]: [id number] [id number] Repository [address]Thi: [phone]) Date:2018-10-04P O [phone] () [address]ATTN: [place] [address]MT: 10/04/2018 Secondary NOT GIVENUNK Eve Insurance:SELF PAY [place] Number: Effective Repository Date:2018-10-04 08/30/2018 ABBY Simpson Primary ABBY [facility] GEISERDOB: Insurance:CARESOURCE GEISERDOB: [facility] [facility] W MEDICAIDPolicy [id number] Repository [facility] Number: [facility] [place] [id number] [place], [place] [address]Xbu: ([phone]) Date:2018-08-30 [id number]: () [id number] [phone] Name:XPO Box (HP)Tel: (000) [facility]130[facility] [place] 000[address] (WP) [phone]: 08/30/2018 ABBY Simpson [facility] ABBY Critical access hospitalISERDOB: Insurance:[employer]ES[employer] GEISERDOB: [facility] W MEDICAIDPolicy [id number] Repository [address] Number: [address] [place], [place] [id number] [place], [place] [address]Xoy: (330) Date:2018-08-30Tel: (HP) [id number] [phone] Name:XPO Box (HP)Tel: (000) 8730[facility] [place] 000[address] (WP) [phone]: 07/23/2018 ABBY Simpson [facility] ABBY [facility] GEISERDOB: Insurance:[employer] GEISERDOB: [facility] [id number] Repository [address] Number: [address] [place] [id number] [place] [address]Lwf: ([phone]) Date:2018-07-23Tel: [id number] [phone] (HP)Tel: (999) Name:XPO Box (HP) (WP) 8730[facility] [place] 000-0000 (WP) [phone]: 03/27/2018 ABBY Simpson [facility] ABBY Critical access hospitalISERDOB: Insurance:[employer] GEISERDOB: [facility] MEDICAIDPolicy [id number] Repository [address] Number: [address] [place] [id number], [place] [address]Vmt: ([phone]) Date:[id number]: [id number] [phone] (HP)Tel: (999) Name:XPO Box (HP) (WP) [address], [place] 000[address] (WP) [phone]: 01/23/2018 ABBY Simpson [facility]: [facility] GEISERDOB: [facility] [id number] MEDICAIDPolicy [id number] Repository [address] Number: [address] [place], [place] [id number] [place], [place] [address]Ddr: ([phone]) Date:2018-01-2305836Dyl: [id number] [phone] ()Tel: ([phone]) Name:XPO Box (HP) (WP) [address], [place] 000[address] (WP) [phone]:
== END 2018-10-04 15:30 ==
PROVIDERS: Emergency Provider Emergency Medicine; Family Provider Family Medicine; PCP Family Medicine
DX: S21.131A Puncture wound without foreign body of right front wall of thorax without penetration into thoracic cavity, initial encounter (principal); S51.831A Puncture wound without foreign body of right forearm, initial encounter; I46.8 Cardiac arrest due to other underlying condition; W34.00XA Accidental discharge from unspecified firearms or gun, initial encounter; Y93.89 Activity, other specified; Y92.9 Unspecified place or not applicable; Y99.9 Unspecified external cause status
CPT/HCPCS: 31500; 71045; 92950; 99291; J7030; A4216